=== PATIENT | female | born 1990 | race African-American/Black ===

== ENCOUNTER 2016-05-24 11:25 | Emergency (ER) | payer OTHER ==
[2016-05-24 11:51] VITALS: BP 124/66
--- NOTE | 2016-05-24 12:27 | UC ---
General HPI - HPI Summary HPI Summary: patients talk with me during exam revealed slightly different information than was given to the nurse at triage. patient was wrestling with her son last night and felt a sharp pain from the left side of her abdomen to her "vagina" the pain stopped when she laid down to rest. She does have a thicker than normal discharge but no odor or white. patient states she is unable to eat unless she smokes marijuana but has not been smoking for the past 4 days she has a counselor that she calls when she feels the urge to eat. - History of Current Complaint Chief Complaint: UCGU Stated Complaint: CRAMPING () Hx Obtained From: Patient Onset/Duration: Sudden Onset, Lasting Days Timing: Constant Onset Severity: Mild Current Severity: Mild Pain Intensity: 7 - when it occurs Associated Signs & Symptoms: Positive: Abdominal Pain - Allergy/Home Medications Allergies/Adverse Reactions: Allergies Allergy/AdvReac Type Severity Reaction Status Date / Time Penicillins Allergy Hives Verified 05/24/16 11:46 Home Medications: Home Medications Ferrous Sulfate TAB* 325 mg PO DAILY 05/24/16 [History Confirmed 05/24/16] Multivitamins/Minerals TAB* [Thera M Plus TAB*] 1 tab PO DAILY 05/24/16 [ History Confirmed 05/24/16] Ondansetron ODT TAB* [Zofran Odt TAB*] 4 mg PO Q6H PRN 05/24/16 [History Confirmed 05/24/16] PMH/Surg Hx/FS Hx/Imm Hx Previously Healthy: Yes - Surgical History Surgical History: Yes Surgery Procedure, Year, and Place: Left Breast Biopsy, 03/13/13 - Family History Known Family History: Positive: Hypertension - Social History Alcohol Use: None Substance Use Type: None Smoking Status (MU): Former Smoker Type: Cigarettes Amount Used/How Often: 2 PPD Length of Time of Smoking/Using Tobacco: 8 Years Have You Smoked in the Last Year: Yes When Did the Patient Quit Smoking/Using Tobacco: 04/23/16 Household Exposure Type: Cigarettes - Immunization History Most Recent Influenza Vaccination: Not the 2015/2016 Season Review of Systems Constitutional: Negative Skin: Negative Eyes: Negative ENT: Negative Respiratory: Negative Cardiovascular: Negative Gastrointestinal: Abdominal Pain - sharp intermittent Genitourinary: Negative Motor: Negative Neurovascular: Negative Musculoskeletal: Negative Neurological: Negative Psychological: Other - in process of stopping marijuana All Other Systems Reviewed And Are Negative: Yes Physical Exam Triage Information Reviewed: Yes Appearance: Well-Appearing, Well-Nourished, Pain Distress Vital Signs: Initial Vital Signs Temp 98.6 F 05/24/16 11:38 Pulse 70 05/24/16 11:38 Resp 16 05/24/16 11:38 BP 124/66 05/24/16 11:38 Pulse Ox 99 05/24/16 11:38 Vital Signs Reviewed: Yes Eye Exam: Normal Eyes: Positive: Conjunctiva Clear ENT Exam: Normal ENT: Positive: Normal ENT inspection, Pharynx normal, TMs normal Dental Exam: Normal Neck exam: Normal Neck: Positive: Supple, Nontender, No Lymphadenopathy Respiratory Exam: Normal Respiratory: Positive: Chest non-tender, Lungs clear, Normal breath sounds Cardiovascular Exam: Normal Cardiovascular: Positive: RRR, No Murmur, Pulses Normal Abdominal Exam: Normal Abdomen Description: Positive: No Organomegaly, Soft, CVA Tenderness (R) - neg, CVA Tenderness (L) - neg, Other: - pain on left side of uterus with movement as described but cannot reproduce in exam Bowel Sounds: Positive: Present Musculoskeletal Exam: Normal Musculoskeletal: Positive: Strength Intact, ROM Intact, No Edema Neurological Exam: Normal Neurological: Positive: Alert, Muscle Tone Normal Psychological Exam: Normal Psychological: Positive: Normal Response To Family, Age Appropriate Behavior Skin Exam: Normal Course/Dx - Course Course Of Treatment: hx obtained, exam performed, UA pos for ketones, sent for culture. educated on nutrition. encouraged to continue to stop smoking and to utilize the counselor as she is doing. Educated on eating calorie rich foods and to follow up with her MD at [facility]. - Differential Dx - Multi-Symptom Provider Diagnoses: . malnutrition. round lig pain. nausea Discharge - Discharge Plan Condition: Stable Disposition: HOME Patient Education Materials: Nausea and Vomiting in (ED) Additional Instructions: Awesome job with your decision to quit smoking, Keep up the good work, Utilize that counselor. I do recommend that you listen to your body and eat what you are craving. Your urine was positive for ketones, which means that you do not have enough reserve and your body is breaking down to provide for itself. I recommend calling to get your first OB appointment within the next week or so. REST, follow up with any worsening symptoms.
== END 2016-05-24 12:52 | disposition home or self-care (01) ==
LOC: UCCORT 11:25
DX: O26.891 Other specified pregnancy related conditions, first trimester (principal); O21.0 Mild hyperemesis gravidarum; O25.11 Malnutrition in pregnancy, first trimester; R10.2 Pelvic and perineal pain; Z87.891 Personal history of nicotine dependence; Z3A.01 Less than 8 weeks gestation of pregnancy
CPT/HCPCS: 81025; 87086; 99201; G0463

== ENCOUNTER 2016-08-22 11:34 | Emergency (ER) | payer OTHER ==
[2016-08-22 11:45] VITALS: BP 114/93
[2016-08-22] MEDS ORDERED: Ondansetron ODT TAB* 4 MG PO ONE (12:33)
--- NOTE | 2016-08-22 12:49 | UC ---
Abdominal Pain Female HPI - HPI Summary HPI Summary: lower abdominal pain x 4 days + nausea, no diarrhea, no dysuria had D& /C at end of May - History of Current Complaint Chief Complaint: UCGeneralIllness Stated Complaint: NAUSEA,WEAK Time Seen by Provider: 08/22/16 11:48 Hx Obtained From: Patient Hx Last Menstrual Period: june ?: No Onset/Duration: Gradual Onset, Lasting Days - 4, Still Present Severity Initially: Moderate Severity Currently: Moderate Location: Suprapubic Radiates: No Character: Cramping Aggravating Factor(s): Nothing Alleviating Factor(s): Nothing Associated Signs and Symptoms: Positive: Nausea, Vomiting. Negative: Negative, Diaphoresis, Fever, Cough, Chest Pain, Dizzy, Back Pain, Constipation, Blood in Stool, Urinary Symptoms, Decreased Appetite, Vaginal Discharge, Diarrhea Allergies/Adverse Reactions: Allergies Allergy/AdvReac Type Severity Reaction Status Date / Time Penicillins Allergy Hives Verified 08/22/16 11:44 Home Medications: Home Medications NK [No Home Medications Reported] 08/22/16 [History Confirmed 08/22/16] PMH/Surg Hx/FS Hx/Imm Hx Previously Healthy: Yes - Surgical History Surgical History: Yes Surgery Procedure, Year, and Place: Left Breast Biopsy, 03/13/13. - Family History Known Family History: Positive: Hypertension - Social History Alcohol Use: None Substance Use Type: Marijuana Substance Use Comment - Amount & Last Used: couple times a week Smoking Status (MU): Former Smoker Type: Cigarettes Amount Used/How Often: 2 PPD Length of Time of Smoking/Using Tobacco: 8 Years Have You Smoked in the Last Year: Yes When Did the Patient Quit Smoking/Using Tobacco: 04/23/16 Household Exposure Type: Cigarettes - Immunization History Most Recent Influenza Vaccination: Not the Season Review of Systems Constitutional: Negative Skin: Negative Eyes: Negative ENT: Negative Respiratory: Negative Gastrointestinal: Abdominal Pain, Vomiting Genitourinary: Negative All Other Systems Reviewed And Are Negative: Yes Physical Exam Triage Information Reviewed: Yes Appearance: Well-Appearing, No Pain Distress, Well-Nourished Vital Signs: Initial Vital Signs Temp 98.8 F 08/22/16 11:38 Pulse 99 08/22/16 11:38 Resp 16 08/22/16 11:38 BP 114/93 08/22/16 11:38 Pulse Ox 100 08/22/16 11:38 Vital Signs Reviewed: Yes Eyes: Positive: Conjunctiva Clear ENT: Positive: Normal ENT inspection, Hearing grossly normal, Pharynx normal Neck: Positive: Supple, Nontender, No Lymphadenopathy Respiratory: Positive: Chest non-tender, Lungs clear, Normal breath sounds Cardiovascular: Positive: RRR, No Murmur, Pulses Normal Skin Exam: Normal Abd Pain Female Course/Dx - Differential Dx/Diagnosis Provider Diagnoses: abdominal pain Discharge - Discharge Plan Condition: Stable Disposition: HOME Patient Education Materials: Acute Abdominal Pain (ED) Referrals: Yolande Harris MD [Primary Care Provider] - 5 Days Additional Instructions: please call the office in 2 hrs for the results of your US
--- NOTE | 2016-08-22 12:59 | RAD ---
Indication: Pelvic pain, recent pelvic procedure. Real-time sonography of the pelvis was performed less than endovaginal technique. The uterus measures 5.9 x 3.3 x 4.9 cm. Endometrial echo measures up to 3.5 mm. Right ovary measures 2.9 x 1.5 x 1.8 cm. Left ovary measures 3.4 x 1.3 x 1.8 cm. Doppler interrogation demonstrates flow in both ovaries. Trace free fluid is noted from the uterus. IMPRESSION: No adnexal masses are noted.
== END 2016-08-22 13:07 | disposition home or self-care (01) ==
LOC: UCCORT 11:34
DX: R10.30 Lower abdominal pain, unspecified (principal); R11.2 Nausea with vomiting, unspecified; Z88.0 Allergy status to penicillin; Z87.891 Personal history of nicotine dependence; Z32.02 Encounter for pregnancy test, result negative
CPT/HCPCS: 76830; 81003; 84702; 87077; 87086; 99212; A9270-GY; G0463

== ENCOUNTER 2016-12-31 13:06 | Emergency (ER) | payer OTHER ==
[2016-12-31 13:45] VITALS: BP 114/63
[2016-12-31] MEDS ORDERED: Ibuprofen TAB* 600 MG PO ONE (14:02)
--- NOTE | 2016-12-31 14:16 | UC ---
Laceration HPI - HPI Summary HPI Summary: patient put her left leg through a pane of glass at 0200 yesterday morning. 3cm laceration to lateral left thigh, small abrasion under the laceration - History Of Current Complaint Chief Complaint: UCLowerExtremity Stated Complaint: LEFT LEG INJURY Time Seen by Provider: 12/31/16 13:56 Hx Obtained From: Patient Hx Last Menstrual Period: last month - wants preg test Laceration Location: Thigh Mechanism Of Injury: Sharp Trauma Onset/Duration: Sudden Onset, Lasting Days - 1 Severity: Moderate - Allergies/Home Medications Allergies/Adverse Reactions: Allergies Allergy/AdvReac Type Severity Reaction Status Date / Time Penicillins Allergy Hives Verified 12/31/16 13:39 Home Medications: Home Medications Acetaminophen TAB* [Tylenol TAB*] 1,000 mg PO ONCE PRN 12/31/16 [History Confirmed 12/31/16] PMH/Surg Hx/FS Hx/Imm Hx Previously Healthy: Yes - Surgical History Surgical History: Yes Surgery Procedure, Year, and Place: Left Breast Biopsy, 03/13/13. - Family History Known Family History: Positive: Hypertension - Social History Alcohol Use: None Substance Use Type: None Substance Use Comment - Amount & Last Used: couple times a week Smoking Status (MU): Light Every Day Tobacco Smoker Type: Cigarettes Amount Used/How Often: 4-5 cigarettes daily Length of Time of Smoking/Using Tobacco: 8 Years Have You Smoked in the Last Year: Yes When Did the Patient Quit Smoking/Using Tobacco: 04/23/16 Household Exposure Type: Cigarettes - Immunization History Most Recent Influenza Vaccination: Not the Season Review of Systems Constitutional: Negative Skin: Other - laceration and abrasion Eyes: Negative ENT: Negative Respiratory: Negative Cardiovascular: Negative Gastrointestinal: Negative Genitourinary: Negative Motor: Negative Neurovascular: Negative Musculoskeletal: Negative Neurological: Negative Is Patient Immunocompromised?: No All Other Systems Reviewed And Are Negative: Yes Physical Exam Triage Information Reviewed: Yes Appearance: Well-Appearing, Well-Nourished, Pain Distress Vital Signs: Initial Vital Signs Temp 100 F 12/31/16 13:39 Pulse 72 12/31/16 13:39 Resp 16 12/31/16 13:39 BP 114/63 12/31/16 13:39 Pulse Ox 99 12/31/16 13:39 Vital Signs Reviewed: Yes Eye Exam: Normal ENT Exam: Normal Dental Exam: Normal Neck exam: Normal Respiratory Exam: Normal Cardiovascular Exam: Normal Abdominal Exam: Normal Bowel Sounds: Positive: Present Musculoskeletal Exam: Normal Musculoskeletal: Positive: Strength Limited @ - slight limp due to pain Neurological Exam: Normal Neurological: Positive: Alert, Muscle Tone Normal Psychological Exam: Normal Skin: Positive: Other - laceation 3 cm, edges are scabbed Laceration Course/Dx - Course/Dx Course Of Treatment: hx obtained, exam performed ,meds reviewed, xray neg for foreign body, wound wet to dry dressing applied, educated on how to, abx given. - Differential Dx - Laceration/Wound Differental Diagnoses: Dehiscence, Foreign Body, Laceration, Puncture Wound Provider Diagnoses: 3 cm laceration on left thigh Discharge - Discharge Plan Condition: Stable Disposition: HOME Prescriptions: Cephalexin CAP* [Keflex CAP*] 500 mg PO TID #21 cap Patient Education Materials: Laceration Without Closure (ED) Additional Instructions: 1. take the medication as prescribed. 2. continue to apply the dressings daily for the next 7 days 3. follow up with any signs of infection
--- NOTE | 2016-12-31 14:27 | RAD ---
Indication: Injury with glass window. Pain upper outer LEFT thigh. Comparison: No relevant prior exams available on the [facility] [place]. Technique: AP and lateral views LEFT femur. Report: Suggestion of small region of normal contour irregularity/subcutaneous emphysema at the lateral mid thigh suspicious for soft tissue laceration however clinical correlation is needed for confirmation. No conspicuous foreign body evident. Negative for fracture or malalignment.
== END 2016-12-31 14:48 | disposition home or self-care (01) ==
LOC: UCCORT 13:06
DX: S71.112A Laceration without foreign body, left thigh, initial encounter (principal); W25.XXXA Contact with sharp glass, initial encounter; Y93.9 Activity, unspecified; Y92.9 Unspecified place or not applicable; Z32.02 Encounter for pregnancy test, result negative; Z88.0 Allergy status to penicillin; Z72.0 Tobacco use
CPT/HCPCS: 84702; 99212; A9270-GY; G0463

== ENCOUNTER 2017-05-15 10:03 | Emergency (ER) | payer OTHER ==
[2017-05-15 10:51] VITALS: BP 125/74
--- NOTE | 2017-05-15 10:54 | UC ---
Complaint Female HPI - HPI Summary HPI Summary: 26 y/o female presents to the urgent care c/o malodorous white vaginal discharge for 2 the past 2 months. Pt reports it is worse after her period. LMP 04/30/2017 with regular menstrual cycles. She is not taking any OCP. Pt had Hx of Chlamydia a few years ago which cleared, She requests STD's. Pt denies fever, itchiness, pelvic pain, urinary symptoms, abdominal pain, N/V/D. - History Of Current Complaint Chief Complaint: UCGU Stated Complaint: PERSONAL Time Seen by Provider: 05/15/17 10:51 Hx Obtained From: Patient Hx Last Menstrual Period: 04/26/17 Onset/Duration: Gradual Onset, Lasting Weeks - 2 months, Still Present, Worse Since - las week Timing: Constant Severity Initially: Mild Severity Currently: Moderate Pain Intensity: 0 Pain Scale Used: 0-10 Numeric Character: Not Applicable Aggravating Factor(s): Vamo, Urination Alleviating Factor(s): Nothing Associated Signs And Symptoms: Positive: Negative. Negative: Fever, Back Pain, Vaginal Bleeding/Discharge, Vaginal Discharge, Genital Swelling, Genital Blisters - Risk Factors Ectopic Risk Factor: Negative - Allergies/Home Medications Allergies/Adverse Reactions: Allergies Allergy/AdvReac Type Severity Reaction Status Date / Time Penicillins Allergy Hives Verified 05/15/17 10:52 PMH/Surg Hx/FS Hx/Imm Hx Previously Healthy: Yes Other Endocrine History: Anemia - Surgical History Surgical History: Yes Surgery Procedure, Year, and Place: Left Breast Biopsy, 03/13/13. - Family History Known Family History: Positive: Cardiac Disease, Hypertension Family History: Lung cancer, breast cance, colon cancer - Social History Occupation: Employed Full-time Lives: With Family Alcohol Use: None Substance Use Type: None Substance Use Comment - Amount & Last Used: couple times a week Smoking Status (MU): Former Smoker Type: Cigarettes Amount Used/How Often: 4-5 cigarettes daily Length of Time of Smoking/Using Tobacco: 8 Years Have You Smoked in the Last Year: Yes When Did the Patient Quit Smoking/Using Tobacco: 04/23/16 Household Exposure Type: Cigarettes - Immunization History Most Recent Influenza Vaccination: Not the 2016/2016 Season Review of Systems Constitutional: Negative Skin: Negative Eyes: Negative ENT: Negative Respiratory: Negative Cardiovascular: Negative Gastrointestinal: Negative Genitourinary: Vaginal/Penile Discharge Motor: Negative Neurovascular: Negative Musculoskeletal: Negative Neurological: Negative Psychological: Negative Is Patient Immunocompromised?: No All Other Systems Reviewed And Are Negative: Yes Physical Exam Triage Information Reviewed: Yes Vital Signs: Initial Vital Signs Temp 98.3 F 05/15/17 10:42 Pulse 81 05/15/17 10:42 Resp 24 05/15/17 10:42 BP 125/74 05/15/17 10:42 - Additional Comments Vital signs: reviewed General: Normotensive, in no acute distress. Head: Normocephalic, no lesions. Eyes: PERRLA, EOM's full, conjunctiva clear, fundi grossly normal. Ears: EAC's clear, TM's normal. Nose: Mucosa normal, no obstruction. Throat: Clear, no exudates, no lesions. Neck: Supple, no masses, no thyromegaly, no bruits. Chest: Lungs clear, no rales, no rhonchi, no wheezes. Heart: RR, no murmurs, no rubs, no gallops. Abdomen: Soft, no tenderness, no masses, BS normal. : Normal, no lesions, no discharge, no hernias noted. Pelvic: I was assisted by Nurse Haydee. External genitalia within normal limits. There is no lesions there is no masses noted. Speculum exam: The vaginal childs are within normal limits w/ moderate white vaginal discharge with a fishy odor, no lesions or rashes. The cervix is closed with no lesions or masses. There is no CMT's, and no adnexal masses. Sample sent Lab for G/C and affirm panel and trichomonas Rectal: No lesions, no hemorrhoids, Back: Normal curvature, no tenderness. Extremities: FROM, no deformities, no edema, no erythema. Neuro: Physiological, no localizing findings. Skin: Normal, no rashes, no lesions noted. Complaint Female Dx - Course Course Of Treatment: 26 y/o female presents to the urgent care c/o malodorous white vaginal discharge for 2 the past 2 months. Pt reports it is worse after her period. LMP 04/30/2017 with regular menstrual cycles. She is not taking any OCP. Pt had Hx of Chlamydia a few years ago which cleared, She requests STD's. Pt denies fever, itchiness, pelvic pain, urinary symptoms, abdominal pain, N/V/ D.Hx obtained. Pt with Bacterial vaginosis on pelvic examination. Pt Rx Metronidazole vaginal cream. UA ordered, result:trace blood. test: negative. Pt educated on STD's. Advised to f/u with INSPECTOR TYPE for PAP at [facility] for the other STDs like HIV, Herpes and RPR. Specimen were sent to lab, Advised she will be notified if any abnormal result from lab. Pt understood and agreed with plan of care. - Differential Dx/Diagnosis Differential Diagnosis/HQI/PQRI: Cervicitis, Pelvic Inflammatory Disease, Sexually Transmitted Disease, Urinary Tract Infection Provider Diagnoses: 1- Bacterial vaginosis. 2- Screening for STDs Discharge - Discharge Plan Condition: Stable Disposition: HOME Prescriptions: metroNIDAZOLE VAGINAL 0.75%* 1 applic VAGINAL BEDTIME #1 raghu Patient Education Materials: Bacterial Vaginosis (ED) Referrals: [facility] [Outside] - If Needed Additional Instructions: 1- Please take medications as directed. Avoid sexual intercourse while on medication. 2- Specimen were sent to lab, if anything abnormal you will receive a call from us for further treatment. 3-If not improvement of symptoms please return to the urgent care or f/u with your INSPECTOR TYPE for further treatment 4-You can go to [facility] for f/u and further screening on STD's
== END 2017-05-15 11:31 | disposition home or self-care (01) ==
LOC: UCCORT 10:03
DX: N76.0 Acute vaginitis (principal); Z11.3 Encounter for screening for infections with a predominantly sexual mode of transmission; Z87.891 Personal history of nicotine dependence
CPT/HCPCS: 81003; 87480; 87491; 87510; 87591; 87661; 99212; G0463